=== PATIENT | male | born 1985 | race Two or more races ===

== ENCOUNTER 2018-05-14 05:26 | Emergency (ER) | payer OTHER ==
[~2018-05-14] VITALS: Ht 167.6 cm; Wt 73.9 kg
[2018-05-14 05:30] VITALS: Ht 167.6 cm; Wt 73.9 kg
[2018-05-14 06:16] VITALS: BP 113/68
== END 2018-05-14 06:16 | disposition home or self-care (01) ==
LOC: ED 05:26
DX: J02.9 Acute pharyngitis, unspecified (principal)
CPT/HCPCS: J1100